=== PATIENT | male | born 1985 | race American Indian/Alaskan Native ===

== ENCOUNTER 2018-06-10 14:32 | Emergency (ER) | payer SELFPAY ==
[2018-06-10 14:41] VITALS: BP 130/83
[2018-06-10] MEDS ORDERED: DELTASONE PO ONE (14:47)
[2018-06-10] MEDS ORDERED: PROVENTIL IH ONE ×2 (14:47→15:21)
--- NOTE | 2018-06-10 14:47 | Emergency Department Report ---
Minor Respiratory - HPI Chief Complaint: Adult Asthma Stated Complaint: ASTHMA Time Seen by Provider: 06/10/18 14:45 Duration: 1 Day Pain Location: Chest Severity: moderate Minor Respiratory: Yes Able to Tolerate Fluids, No Rhinorrhea, No Sore Throat, No Ear Pain, No Cough, No Sick Contacts, No Hemoptysis, No Chest Pain, No Shortness of Breath, No Fever Other History: Patient has just moved to [place] from [place]. He does not have any of her medicines. With the season change and change in pollen he started wheezing. He denies purulent sputum or fever. ED Review of Systems ROS: Stated complaint: ASTHMA Other details as noted in HPI Comment: All other systems reviewed and negative Constitutional: denies: chills, fever Eyes: denies: eye pain ENT: denies: ear pain, throat pain Respiratory: see HPI, cough, wheezing. denies: orthopnea Cardiovascular: denies: chest pain, palpitations, dyspnea on exertion Endocrine: denies: flushing, intolerance to cold Gastrointestinal: denies: abdominal pain, nausea Genitourinary: denies: urgency, dysuria Musculoskeletal: denies: back pain Skin: denies: rash, lesions Neurological: denies: headache, weakness Psychiatric: denies: anxiety, depression Hematological/Lymphatic: denies: easy bleeding ED Past Medical Hx - Past Medical History Hx Asthma: Yes - Surgical History Past Surgical History?: No - Family History Family history: no significant - Social History Smoking Status: Never Smoker Substance Use Type: None - Medications Home Medications: Home Medications Medication Instructions Recorded Confirmed Last Taken Type Albuterol Sulfate [Ventolin HFA] 2 puff IH Q4H PRN #1 hfa.aer.ad 06/10/18 Unknown Rx Fluticasone/Salmeterol(Nf) [Advair 1 puff IH DAILY #1 each 06/10/18 Unknown Rx HFA 115-21 mcg] Montelukast [Singulair] 10 mg PO QPM #30 tablet 06/10/18 Unknown Rx predniSONE [Deltasone] 50 mg PO QDAY #5 tab 06/10/18 Unknown Rx Minor Respiratory Exam - Exam General: Vital signs noted. No distress. Alert and acting appropriately. HEENT: Yes Moist Mucous Membranes, No Pharyngeal Erythema, No Pharyngeal Exudates, No Rhinorrhea, No Conjuctival Injection, No Frontal Tenderness, No Maxillary Tenderness Ear: Neither TM Bulge, Neither TM Erythema, Neither EAC Pain, Neither EAC Discharge Neck: Yes Supple, No Adenopathy Lungs: Yes Good Air Exchange, Yes Wheezes (B), No Ronchi, No Stridor, No Cough, No Labored Respirations, No Retractions, No Use of Accessory Muscles, No Other Abnormal Lung Sounds Heart: Yes Regular, No Murmur Abdomen: Yes Normal Bowel Sounds, No Tenderness, No Peritoneal Signs Skin: No Rash, No Edema Neurologic: Alert and oriented, no deficits. Musculoskeletal: Unremarkable. ED Course Vital Signs 06/10/18 14:39 Temperature 97.4 F L Pulse Rate 81 Respiratory 18 Rate Blood Pressure 130/83 O2 Sat by Pulse 98 Oximetry ED Medical Decision Making - Medical Decision Making She presents to the ER after moving here in the last couple days from [place]. He's had problems with wheezing with the pollen season change. He does not have any of his home medicines. - Differential Diagnosis ASTHMA W OR WO INFECTION Critical care attestation.: If time is entered above; I have spent that time in minutes in the direct care of this critically ill patient, excluding procedure time. ED Disposition Clinical Impression: Asthma, Asthma with acute exacerbation, Medication refill Disposition: DC-01 TO HOME OR SELFCARE Is pt being admited?: No Does the pt Need Aspirin: No Condition: Stable Instructions: Asthma (ED) Additional Instructions: AVOID TRIGGER MEDS ORDERED TODAY FOLLOW UP PCP REFERRAL PROVIDED BELOW Prescriptions: Albuterol Sulfate [Ventolin HFA] 2 puff IH Q4H PRN #1 hfa.aer.ad PRN Reason: Shortness Of Breath Fluticasone/Salmeterol(Nf) [Advair HFA 115-21 mcg] 1 puff IH DAILY #1 each Montelukast [Singulair] 10 mg PO QPM #30 tablet predniSONE [Deltasone] 50 mg PO QDAY #5 tab Referrals: KAY BIRMINGHAM JR, MD [Staff Physician] - 3-5 Days Time of Disposition: 14:49
== END 2018-06-10 17:00 | disposition home or self-care (01) ==
LOC: ED 14:32
DX: J45.901 Unspecified asthma with (acute) exacerbation (principal); Z76.0 Encounter for issue of repeat prescription
CPT/HCPCS: 94640; 99283; J7512

== ENCOUNTER 2022-03-08 06:49 | Emergency (ER) | payer SELFPAY ==
[2022-03-08 06:55] VITALS: BP 116/86
== END 2022-03-08 12:22 | disposition left against medical advice (07) ==
LOC: ED 06:49
DX: J45.909 Unspecified asthma, uncomplicated (principal); Z53.21 Procedure and treatment not carried out due to patient leaving prior to being seen by health care provider